=== PATIENT | male | born 1945 | race Caucasian/White ===

== ENCOUNTER 2021-02-12 09:39 | Outpatient (CLI) | payer MEDICARE, SELFPAY ==
--- NOTE | 2021-02-12 10:13 | FL_ITS ---
WS: [id number] UPPER GI WITH AIR TECHNICAL: Double contrast upper GI FLUOROSCOPY TIME: 5.4 minutes CLINICAL INFORMATION: DYSPHAGIA COMPARISON: 2006 Barium swallow FINDINGS: Swallowing: No evidence of aspiration or penetration. Normal swallowing mechanism. Esophagus: Diffuse patulous dilatation of the thoracic esophagus with significant delayed emptying on the upright and supine views. Overall decreased and irregular esophageal contractility with tapered narrowing at the GE junction with intermittent emptying likely due to achalasia/pseudoachalasia. Sta nding column of contrast in the upright and supine imaging. Mucous appears intact in the area of stri cture at the GE junction with a tram track appearance. Stricture is similar in appearance compared to the barium swallow 2006 although esophageal dilatation has significantly progressed. Gastroesophageal reflux: No significant reflux. Stomach: Normal double contrast stomach. Duodenum: Normal duodenal C-loop. Other findings: Moderate spondylitic changes lumbar spine with lumbar curve. FL/FL upper GI w air* [id number] IMPRESSION: 1. Diffuse patulous dilatation of the thoracic esophagus with significant noris yed emptying with stricture at the GE junction. Recommend further evaluation wi endoscopy. 2. Overall decreased and irregular contractility of the thoracic esophagus wit h standing column of contrast compatible with achalasia/pseudoachalasia. 3. No significant reflux visualized. No significant hiatal hernia. 4. Normal double contrast stomach and duodenal C-loop.
== END 2021-02-12 09:40 | disposition home or self-care (01) ==
PROVIDERS: PCP Family Medicine; Visit Provider Family Medicine
DX: R13.10 Dysphagia, unspecified (principal); N39.0 Urinary tract infection, site not specified
CPT/HCPCS: 74246

== ENCOUNTER → 2022-07-08 14:46 | Outpatient (BNVA) | payer MEDICARE, SELFPAY | PROVIDERS: PCP Family Medicine; Visit Provider Clinical Nurse Specialist Adult Health | DX: Z79.01 Long term (current) use of anticoagulants (principal); L03.119 Cellulitis of unspecified part of limb; I82.409 Acute embolism and thrombosis of unspecified deep veins of unspecified lower extremity | CPT/HCPCS: 85610 ==

== ENCOUNTER → 2023-06-24 09:42 | Outpatient (BNVA) | payer MEDICARE, SELFPAY | PROVIDERS: PCP Family Medicine; Visit Provider Family Medicine | DX: N20.0 Calculus of kidney (principal) | CPT/HCPCS: 81000; 87077; 87086; 87184 ==

== ENCOUNTER → 2023-08-06 09:26 | Outpatient (BNVA) | payer MEDICARE, SELFPAY | PROVIDERS: PCP Family Medicine; Referring Provider Family Medicine; Visit Provider Student in an Organized Health Care Education/Training Program | DX: M19.012 Primary osteoarthritis, left shoulder (principal); G56.00 Carpal tunnel syndrome, unspecified upper limb; G56.20 Lesion of ulnar nerve, unspecified upper limb; M75.102 Unspecified rotator cuff tear or rupture of left shoulder, not specified as traumatic; Z79.899 Other long term (current) drug therapy | CPT/HCPCS: 73030; 99204 ==

== ENCOUNTER → 2023-08-19 08:54 | Outpatient (BNVA) | payer MEDICARE, SELFPAY | PROVIDERS: PCP Family Medicine; Visit Provider Clinical Nurse Specialist Adult Health | DX: R30.0 Dysuria (principal); N39.0 Urinary tract infection, site not specified | CPT/HCPCS: 81000; 87077; 87086; 87184 ==

== ENCOUNTER 2023-09-03 06:42 | Outpatient (CLI) | payer MEDICARE, SELFPAY ==
--- NOTE | 2023-09-03 07:15 | MR_ITS ---
WS: [id number] MRI LEFT SHOULDER HISTORY: left shoulder pain, rule out rotator cuff tear COMPARISON: Shoulder radiograph 08/06/2023 TECHNIQUE: Multiplanar sequences of the shoulder joint are submitted. Mild compromise of image quality due to motion artifact. Severe degenerative changes at the AC joint. Loss of the normal AC joint with adjacent osteophytes an d subchondral cystic disease. There is significant impingement upon the rotator cuff medial to the hu meral head by AC joint arthritis. Subacromial impingement secondary to high riding humeral head. No o s acromion. Biceps tendon is not identified in the bicipital groove. Just proximal to the bicipital g roove is an abnormal biceps tendon. Biceps tendon is thickened with intermediate signal. Markedly high riding humeral head. There is abutment on the undersurface of the acromion. Complete lo ss of cartilage around the humeral head and glenoid. Subchondral cysts within the glenoid. Severe atrophy of the supraspinatus muscle. The supraspinatus tendon is torn and retracted medial to the humeral head. The distal supraspinatus tendon is frayed. Subscapularis tendon is not identified w ithin its entirety. Suspect the subscapularis tendon is also torn distally with retraction. Mild subs capularis muscle atrophy. Mild infraspinatus muscle atrophy. The tendon is difficult to identify dist ally. I suspect there may be some calcific deposits within the distal infraspinatus tendon. The teres minor muscle is dominant. Surface fraying of the labrum. The superior labrum appears torn. Tear continues through the anterior labrum. MR/MR shoulder LT wo con* [id number] IMPRESSION: 1. Advanced degenerative changes throughout the LEFT shoulder. 2. Severe AC joint arthropathy with osteophyte encroachment upon the rotator c uff. 3. Complete tear with retraction supraspinatus tendon with muscle atrophy. 4. Subscapularis tendon and infraspinatus tendons are very poorly visualized d istally and I suspect these are both torn with muscle atrophy. 5. Biceps tendon not identified in the bicipital groove. Most consistent with dislocation. Just proximal to the bicipital groove the biceps tendon is thicken ed and heterogeneous from tendinopathy. 6. High riding humeral head abutting the undersurface of the acromion. Advance d degenerative changes at the glenohumeral joint. 7. Tears involving the superior and anterior labrum.
== END 2023-09-03 06:43 | disposition home or self-care (01) ==
LOC: RAD 06:42
PROVIDERS: PCP Family Medicine; Visit Provider Student in an Organized Health Care Education/Training Program
DX: M19.012 Primary osteoarthritis, left shoulder (principal); M75.122 Complete rotator cuff tear or rupture of left shoulder, not specified as traumatic
CPT/HCPCS: 73221

== ENCOUNTER → 2023-11-10 07:38 | Outpatient (BNVA) | payer MEDICARE, SELFPAY | PROVIDERS: PCP Family Medicine; Visit Provider Student in an Organized Health Care Education/Training Program | DX: G56.02 Carpal tunnel syndrome, left upper limb (principal); G56.22 Lesion of ulnar nerve, left upper limb | CPT/HCPCS: 99214 ==

== ENCOUNTER → 2023-11-23 15:28 | Outpatient (BNVA) | payer MEDICARE, SELFPAY | PROVIDERS: PCP Family Medicine; Visit Provider Family Medicine | DX: I82.409 Acute embolism and thrombosis of unspecified deep veins of unspecified lower extremity (principal); Z79.01 Long term (current) use of anticoagulants; K92.1 Melena | CPT/HCPCS: 85025; 85610 ==

== ENCOUNTER 2023-12-30 06:31 | Day surgery (SDC) | payer MEDICARE, SELFPAY ==
[2023-12-30] VITALS (9 sets, daily range): BP systolic 109–183; BP diastolic 64–92; PULSE 74–81; RESP 16–18; TEMP 36.1–36.5; O2SAT 91–98; BMI 33.5
[2023-12-30] MEDS: sodium chloride 0.9% 1,000 ML 30 ML IV (07:10)
[2023-12-30] MEDS: ketorolac 30 mg/mL INJ IVP (07:11)
[2023-12-30] MEDS: scopolamine 1.5 Patch 1 PATCH TRANSDERMA (07:11)
[2023-12-30] MEDS: acetaminophen 1,000 MG/100 ML PIGGYBACK 400 MG IV (07:11)
--- NOTE | 2023-12-30 07:14 | P.HP_ITS ---
Same Day Surgery H&P Indication for Procedure/HPI DATE OF PROCEDURE: December 30, 2023 CHIEF COMPLAINT/INDICATIONFOR SURGICAL PROCEDURE: Left carpal tunnel syndrome, left cubital tunnel syndrome PREOP DIAGNOSIS: Left carpal tunnel syndrome, left cubital tunnel syndrome PLANNED PROCEDURE: Operation Date: 12/30/23 09:10 Proposed Procedures p Carpal Tunnel Release(Left) - Moshe Berrios DO s Cubital Tunnel Release(Left) - Moshe Berrios DO s Ulnar Nerve Transposition(Left) - Moshe Berrios DO Medications/Allergies* Home Medications Medication Instructions Recorded Confirmed Type glyburide 5 mg tablet 5 mg PO BID 12/29/23 12/29/23 History lisinopril 20 mg tablet 20 mg PO DAILY 12/29/23 12/29/23 History lovastatin 10 mg tablet 10 mg PO DAILY 12/29/23 12/29/23 History warfarin 5 mg tablet 5 mg PO DAILY 12/29/23 12/29/23 History Allergies/Adverse Reactions Allergy/AdvReac Type Severity Reaction Status Date / Time No Known Allergies Allergy Verified 12/29/23 13:58 Current Medications: Generic Name Dose Route Start Last Admin Trade Name Freq PRN Reason Stop Dose Admin Sodium Chloride 1,000 mls @ 30 mls/hr 12/30/23 06:45 12/30/23 07:10 Sodium Chloride 0.9% IV 12/31/23 06:44 30 mls/hr .Q24H ASTRID Administration Pertinent History/Comorbid Conditions* Medical History (Updated 11/23/23 @ 22:13 by Moshe Berrios DO) Axonal sensorimotor neuropathy Primary osteoarthritis, left shoulder Warfarin anticoagulation DVT (deep venous thrombosis) previous history and is on warfarin Type 2 diabetes mellitus without complications Essential hypertension Social History Smoking and tobacco/nicotine status: unknown if used tobacco/nicotine Marital status: Pertinent Exam Findings alert, oriented x 3, operative site marked and procedure specific exam findings Orthopedic examination today does reveal thenar weakness and atrophy as well as some atrophy of the intrinsic musculature as well particularly noticed at the first webspace today. Please refer to detailed orthopedic examination on 11/09/2023: Left upper extremity normal C-spine ROM No pain. Negative Spurlings Negative Tinel's@ shoulder. Normal ROM Normal ROM elbow. Positive Tinel's@ elbow Right and Left. Thenar weakness bilaterally and mostly on the left more than on the right Subtle atrophy noted. No Intrinsic atrophy noted bilaterally. Left shoulder examination of the cervical spine reveals no pain with range of motion. A negative Spurlings test is noted. There is some tenderness over the trapezius muscle on the left. Exam of both upper extremities shows no pain on range of motion of the elbows wrists or hands. Left shoulder active to roughly only 40- 45 degrees passively roughly 160 there is no atrophy noted about the right shoulder. The left shoulder shows marked pain on range of motion, primarily abduction as well as forward flexion. There is pain on abduction against resistance, pain over the leading edge of the acromion. There is some pain near the AC joint on the left compared to the right. Positive drop arm test , there is full internal and external rotation with 5/5 strength noted with the elbows at the side. There is pain with Jobes test and weakness noted. There is dramatic weakness with a positive two finger drop arm test. A positive Marin impingement test is noted positive crossover arm test Patient does have positive Tinel's over the cubital tunnel and carpal tunnel as well as positive median nerve compression test on the left wrist.. Positive Phalen's left wrist Recommendations Surgery/Procedure today Other Plans: Patient is here today we reviewed once again his nerve conduction study results as well as our exam findings and at this point in time through shared decision making patient elects to proceed with left carpal tunnel release and left cubital tunnel release with possible nerve transposition. Patient understands the ins and outs of procedure the risk benefits complication alternatives surgery and through shared decision-making elects proceed with surgical intervention. All questions have been answered this time. Coding Level of Care Code Acute Code for g Fwd
[2023-12-30 07:16] LABS: Glucose Point of Care 275 mg/dL (70-110)
[2023-12-30 07:36] LABS: INR 1.12 (0.8-1.2)
--- NOTE | 2023-12-30 07:38 | P.ANESASSM_ITS ---
Pre-Anesthetic Assessment Height/Weight: Height 1.78 m Weight 106.141 kg Temp Pulse Resp BP Pulse Ox O2 Del Method 97.7 F 74 18 183/92 95 Room Air 12/30/23 06:51 12/30/23 06:51 12/30/23 06:51 12/30/23 06:51 12/30/23 06:51 12/30/23 07:07 Preop Diagnosis: Left carpal tunnel syndrome, left cubital tunnel syndrome Operation Date: 12/30/23 09:10 Proposed Procedures p Carpal Tunnel Release(Left) - Moshe Agustina, DO s Cubital Tunnel Release(Left) - Moshe Anoka, DO s Ulnar Nerve Transposition(Left) - Moshe Agustina, DO Familial anesthetic complications: None Was Beta Karan taken within 24 hours: N/A Was Clonidine taken within 24 hours: N/A Last intake: Intake Last Liquid Date 12/29/23 Last Liquid Time 17:00 Last Solid Date 12/29/23 Last Solid Time 17:00 Social No alcohol and No tobacco Exam alert, oriented x 3, clear to auscultation bilaterally and regular rate & rhythm Airway Mallampati: Class II Dentition: full CV/HEM Deep Vein Thrombosis and Hypertension Metabolic Diabetes Mellitus Anesthetic Plan ASA status: 3 Anesthesia: General and Regional (specify below) Risk of > 500 ml blood loss (7ml/kg in children): No Medications/Allergies Home Medications Medication Instructions Recorded Confirmed Last Taken Type insulin human U-100 NPH-regulr 40 unit (0.4 mL) SUBCUT BID #10 mL 07/14/22 12/29/23 12/29/23 Rx 70-30 mix 100 unit/mL subcutaneous susp (Novolin 70/30 U-100 Insulin) warfarin 2 mg tablet 2 mg PO .as directed #90 tabs 02/06/23 12/29/23 12/25/23 Rx insulin syringe-needle U-100 1 mL #100 ea 06/22/23 11/23/23 Unknown Rx 31 gauge x 08/19 famotidine 20 mg tablet (Pepcid) 20 mg PO BID #60 tabs 12/29/23 12/30/23 Unknown Rx glyburide 5 mg tablet 5 mg PO BID 12/29/23 12/29/23 12/29/23 History lisinopril 20 mg tablet 20 mg PO DAILY 12/29/23 12/29/2312/28/24 History lovastatin 10 mg tablet 10 mg PO DAILY 12/29/23 12/29/23 12/29/23 History warfarin 5 mg tablet 5 mg PO DAILY 12/29/23 12/29/23 12/25/23 History Allergies Allergy/AdvReac Type Severity Reaction Status Date / Time No Known Allergies Allergy Verified 12/29/23 13:58 Current Medications Generic Name Dose Route Start Last Admin Trade Name Freq PRN Reason Stop Dose Admin Sodium Chloride 1,000 mls @ 30 mls/hr 12/30/23 06:45 12/30/23 07:10 Sodium Chloride 0.9% IV 12/31/23 06:44 30 mls/hr .Q24H ASTRID Administration PFSH Anesthesia Medical History Axonal sensorimotor neuropathy Primary osteoarthritis, left shoulder Warfarin anticoagulation DVT (deep venous thrombosis) previous history and is on warfarin Type 2 diabetes mellitus without complications Essential hypertension Social History Smoking and tobacco/nicotine status: unknown if used tobacco/nicotine Marital status: Data Anesthesia 12/30/23 07:06 Coags 12/30/23 07:06 PT 14.80 INR 1.12 Cardiac Studies: 2 No Data to Display
--- NOTE | 2023-12-30 07:39 | ANES.PROC ---
Anesthesia Procedures Procedure/Date: 12/30/23 Nerve Block ^: Nerve Block 1: Main Anesthesia: general anesthesia Time Out Performed: Yes Consent: requested by attending/covering physician, from patient, from other, risks and benefits reviewed and patient agrees to proceed Nerve block location: supraclavicular (L) Anesthesia monitors applied: pulse oximetry, EKG, BP cuff and oxygen Nerve block position: semi sitting Anesthetic Used: ropivicaine 0.5% (25 ml) and with decadron (4 mg) Ultrasound used to: recognize landmarks, visualize and ID brachial plexus and in supraclavicular region Nerve Stimulator Used?: No Interscalene/Femoral BLK: 4 stimuplex 21 g needle used for position and inplane approach, visualize local anesthetic spread and no vascular puncture identified Patient Tolerated Procedure: well and no complications Complications: none
--- NOTE | 2023-12-30 07:40 | SUR.PREOP ---
supraclavicular block don at bedside. timeout completed at 0735. 25ml of lidocaine used. patient vitals monitored. patient tolerated well.
[2023-12-30 07:43] LABS: Blood Urea Nitrogen 24 mg/dL (8-23); Calcium 8.6 mg/dL (8.5-10.5); Carbon Dioxide 19 mmol/L (22-29); Chloride 100 mmol/L (98-107); Creatinine Clr Calc Pharmacy 53.0545; Glucose 291 mg/dL (65-115); Osmolality Calculated 289 mOsm/kg (285-295); Sodium 132 mmol/L (136-145)
[2023-12-30 07:48] LABS: Anion Gap 17.7 (5-19); Potassium 4.7 mmol/L (3.5-5.1)
[2023-12-30] MEDS: ceFAZolin 2,000 MG in sodium chloride 0.9% (plus) 50 ML 100 MG IV (08:55)
[2023-12-30] MEDS: ROPivacaine 0.5% SDV 30 mL 150 MG INJECTION (09:56)
[2023-12-30] MEDS: lidocaine-epi 1% PF 1:200,000 30 mL SDV INJECTION (09:56)
--- NOTE | 2023-12-30 10:05 | W.PM.BPON ---
Date of Procedure: 12/30/2023 Surgeon: Moshe Berrios DO Water/Wastewater Project Engineer(s): Ander Berrios PA-C Procedure(s) performed: Left carpal tunnel release left cubital tunnel release Findings of the procedure(s): Patient was found to have left carpal tunnel syndrome, left cubital tunnel syndrome underwent procedure as planned without issues no complications. Patient did not have a subluxating ulnar nerve as a result no transposition was performed and we just did a left cubital tunnel release nerve in situ. Estimated blood loss: 5 mL Specimen(s) removed: None Post-operative diagnosis: Left carpal tunnel syndrome, left cubital tunnel syndrome
--- NOTE | 2023-12-30 10:07 | P.OP_ITS ---
Operative Report Date of procedure: December 30, 2023 Surgeon: Moshe Berrios DO Child Care Education Coordinator: Ander Berrios PA-C: PA was necessary for assistance in this case with hand positioning to execute the procedure, retraction and protection of neurovascular structures as well as to assist with wound closure and dressing application. Procedure: Preoperative diagnosis: Left carpal tunnel syndrome, left cubital tunnel syndrome Postop Diagnosis: Same Procedure done: Left carpal tunnel release Left?cubital tunnel tunnel release (ulnar nerve decompression at elbow) Surgeon: Moshe Berrios DO Estimated blood loss: 5 mL Tourniquet? 23 minutes IV fluids: 400 mL Complications: None Findings: See operative report narrative Condition: stable Disposition: same day Brief History: Patient's been seen and worked up in the outpatient setting and findings consistent with preoperative diagnosis.? Patient has Left carpal tunnel syndrome as well as Left?cubital tunnel syndrome which has been worked up in the outpatient setting has physical exam findings consistent with this as well as confirmatory nerve conduction/EMG nerve conduction study consistent with diagnosis.? Patient's failed conservative treatment.? As result through shared decision making agreed to proceed with? Left carpal tunnel and Left?cubital tunnel release, possible nerve transposition we talked about treatment options as far as nonoperative and operative intervention.? Understands risk benefits complication alternatives surgical nonsurgical treatment options.? Understanding his risks he agrees to proceed with surgical intervention. Consent was obtained. All questions answered. Procedure: Patient seen evaluate in the preoperative holding area.? Consent was reviewed and signed with patient.? Correct extremity marked.? Patient seen evaluated by anesthesia department, given regional anesthesia, once cleared for surgery was then taken back to the operative suite placed in supine position all bony prominences well-padded patient properly secured to bed.? Left upper extremity placed onto armboard.? Nonsterile tourniquet applied Left upper arm.? Patient then underwent anesthesia per the anesthesia department.? Patient's Left upper extremity was then prepped and draped in standard orthopedic fashion.? Final timeout performed.? Patient received appropriate preoperative antibiotics. Esmarch was used exsanguinate the Left upper extremity.? Tourniquet was insufflated to 250 mmHg. I started with the carpal tunnel release first.? I made a standard open carpal tunnel release starting with the distal most extent in the palm at the Deng's cardinal line and the incision line was made in line with the fourth ray and ended just distal to the wrist crease.? Sharp scalpel incision was made through skin and subcutaneous tissue I then utilizing self retainer then began to dissect with dissection scissors split longitudinally the palmar fascia.? Next I then utilizing my assistant manager/embalmer Gamaliel retractors subsequently utilizing scalpel feathered through the palmaris brevis as well as through the transverse carpal ligament distally.? Once I encountered the floor of the transverse carpal ligament and entered into the carpal tunnel I then switched to dissection scissors.? Carefully released the distal extent of the transverse carpal ligament to the palmar fat.? Care was to protect the recurrent branch and not injured this during this part of the case.? Next I then placed a Almira underneath the transverse carpal ligament proximally to protect the nerve in the carpal tunnel contents.? And then I subsequently under loupe magnification utilize my dissection scissors to release the transverse carpal ligament into the antebrachial fascia under direct visualization with care to keep my scissors with a curved ulnarly away from the palmar cutaneous branch.? The transverse carpal was then completely decompressed proximally and a Almira was then placed both distally and proximally throughout the carpal tunnel and had complete decompression of the nerve.? The nerve did appear to have hourglass shape as it went through the carpal tunnel.? With significant irritation noted around the nerve.? No masses were noted within the contents of the carpal tunnel.? This completed the carpal tunnel release and then I subsequently irrigated the wound bed and placed a wet Ray-Clarita into the incision for later closure. Next marked out the landmarks of the Left elbow of the medial epicondyle and olecranon and made a curvilinear incision following the course of the ulnar nerve at the medial aspect of the elbow.? Sharp scalpel incision was made through skin and subcutaneous tissue.? Next I switched to Littler dissection scissors and spread in plane of the medial antebrachial cutaneous nerve branching which was protected throughout this part of the dissection.? Then I directly came down over the fascia and identified the 2 heads of the FCU fascia and split this Left in the middle and subsequently identified my ulnar nerve distally.? This was then completely released distally under direct visualization and loupe magnification.? Once the nerve was then identified I then subsequently tracked this proximally and released this through Ramachandran's ligament as well as complete decompression of the nerve proximally all the way past the intermuscular septum.? Patient was found to have significant tethering and indentation on the nerve at Ramachandran's ligament consistent with significant ulnar nerve entrapment at the elbow. The nerve was completely released and decompressed both proximally and distally.? Ulnar nerve neurolysis performed and completed both proximally and distally with dissection scissors.? I then took the elbow through range of motion and there was no instability or subluxating of the ulnar nerve.? This completed?cubital tunnel release.? ?Next the wound bed was thoroughly irrigated.? Tourniquet was deflated.? Hemostasis was satisfactory at the?cubital tunnel release surgery site. I then inspected the carpal tunnel incision and this was found to have satisfactory hemostasis and all this was maintained through bipolar electrocautery.? At this point time I sequentially closed?cubital tunnel site with 3-0 Vicryl suture in a running horizontal mattress nylon stitch.? ? The carpal tunnel release surgery was then closed in standard interrupted mattress fashion.? Dressing was Xeroform 4 x 4's ABD Curlex soft roll and an Vincent wrap has a bulky soft dressing with a sling. Patient was then awakened from anesthesia and taken to PACU in stable condition. Disposition: Patient taken to PACU in stable condition recovering well.? Patient will receive appropriate discharge instructions as well as pain medication postoperatively.? We will follow-up with me in the office in 2 weeks.? Patient understands agrees with current plan.? All questions answered.? He understands if any questions or concerns and contact the office for follow-up appointment..
--- NOTE | 2023-12-30 10:35 | PM.PACU ---
PACU note Narrative: Patient is 78-year-old male who just underwent left carpal tunnel release and left cubital tunnel release. Patient transferred to PACU in stable condition. Pain is well controlled. Dressing on hand is dry and in place. Patient's fingers are warm and well-perfused. Patient can wiggle fingers. normal cap refill under 2 seconds. Unable to further testing of motor and motion in arm due to sling and dressing. Unable to assess sensation due to residual localized anesthetic. Exam: awake Disposition: discharged
--- NOTE | 2023-12-30 11:20 | ANE.PACU2 ---
Inpatient post-anesthesia follow up: Airway intact: Yes Vital signs: Temperature 97.5 F Pulse Rate 80 Respiratory Rate 18 Blood Pressure 128/74 Pulse Oximetry 92 Oxygen Delivery Me thod Room Air Oxygen Flow Rate 6 Fraction of Inspir ed Oxygen Hydration adequate: Yes Nausea and vomiting: No Pain level: 1 Mental status: Baseline
== END 2023-12-30 11:20 | disposition home or self-care (01) ==
PROVIDERS: Anesthesiology; PCP Family Medicine; Visit Provider Student in an Organized Health Care Education/Training Program
PROC: (CPT 64721; principal; 2023-12-30 09:00)
PROC: (CPT 64718; 2023-12-30 09:00)
PROC: (CPT 64718; 2023-12-30 09:00)
DX: G56.02 Carpal tunnel syndrome, left upper limb (principal); G56.22 Lesion of ulnar nerve, left upper limb; Z86.718 Personal history of other venous thrombosis and embolism; I10 Essential (primary) hypertension; E11.9 Type 2 diabetes mellitus without complications; Z79.4 Long term (current) use of insulin; Z79.01 Long term (current) use of anticoagulants
CPT/HCPCS: 64718; 64721; 36416; 80048; 82962; 85610; J0131; J0690; J1100; J1885; J2405; J2704; J2795; J3010; J7030

== ENCOUNTER → 2024-01-14 13:41 | Outpatient (BNVA) | payer MEDICARE, SELFPAY | PROVIDERS: PCP Family Medicine; Visit Provider Physician Assistant | DX: Z98.890 Other specified postprocedural states (principal) | CPT/HCPCS: 99024 ==

== ENCOUNTER → 2024-12-22 09:55 | Outpatient (BNVA) | payer MEDICARE, SELFPAY | PROVIDERS: PCP Family Medicine; Visit Provider Family Medicine | DX: I10 Essential (primary) hypertension (principal); E11.9 Type 2 diabetes mellitus without complications; R07.9 Chest pain, unspecified; K92.1 Melena | CPT/HCPCS: 80053; 80061; 83036; 85025; 85610 ==

== ENCOUNTER 2024-12-29 06:47 | Outpatient (CLI) | payer MEDICARE, SELFPAY ==
[2024-12-29 07:11] VITALS: BMI 33.8
--- NOTE | 2024-12-29 07:15 | ECG_ITS ---
Subimage Test Date: 2024-12-29 Pat Name: Mehran Perez Department: Room: Gender: Male Polisher Dial: : 1945 Requested By: Matheus Pleitez Order Number: [id number] Arenas MD: Edi Londono M.D. Interpretive Statements Procedure: A total of 0.4 mg of Lexiscan was infused over 20 seconds. The stress phase was continued for a total of 5 minutes. Sestamibi was injected 20 seconds after the Lexiscan infusion. Vital signs and ECG findings: Baseline blood pressure 193/120 with a heart rate of 84. Blood pressure in recovery was 175/86 with a heart rate of 90 bpm. Baseline EKG showed normal sinus rhythm with frequent premature atrial contractions and right bundle branch block. There were no ST-T wave changes compared to baseline with the stress test. Conclusion: 1. Normal EKG response to Lexiscan infusion 2. No Lexiscan induced chest pain. 3. Normal blood pressure and heart rate response. Frequent premature atrial contractions at rest which improved during the stress test. 4. Nuclear myocardial perfusion scan pending; see separate report. Electronically Signed On 12-29-2024 20:08:16 CDT by Edi Londono M.D. [email or web address]
--- NOTE | 2024-12-29 07:16 | NMCV_ITS ---
NM justino perf SPECT r/s* [id number] Mehran Perez Age: 79 Gender: M : 1945 Exam Date: 12/29/2024 07:50 Ordering Phys: Matheus Telles MD Technologist: CRISTINA Santos Exam Location: [facility] [address] Indications: CP STRESS TEST Please see separate stress test report in [facility] for full findings IMAGE PROTOCOL Rest/Stress 1 Lexiscan Day Radiopharmaceutical Dose (mCi) Administration Site Administered by Rest: Tc-99m 10.6 IV Ibeth Rosa, FARM HELPER Sestamibi Stress:Tc-99m 32.9 IV Ibeth Vuonggle, FARM HELPER Sestamibi Rest: 29-Dec-2024 60 Discovery 630 Stress: 29-Dec-2024 30 Discovery 630 0.4mg Lexiscan. Supine position only as patient was unable to lay prone because of past back surgery. SPECT RESULTS Technical Quality: Good Raw Data Analysis: Normal Image Corrections: No attenuation or motion correction applied Summed Stress Score: 2 Summed Rest Score: 1 Summed Difference Score: 1 PERFUSION FINDINGS There is a small to medium sized area of moderately reduced tracer counts in the anterior wall that partially improves on the resting images. There is a small area of mildly reduced tracer counts in the mid inferior wall that improves on the resting images. FUNCTIONAL RESULTS (calculated via Gated SPECT) Stress Image LV EF (%): 75 Stress EDV (mL):96 TID: 1.12 Stress ESV (mL):24 FUNCTIONAL FINDINGS: There is normal left ventricular systolic function. EF 75%. IMPRESSIONS 1. Small area of infarction in the apical anterior wall segment with a small area of adjacent moderate ischemia. 2. Small area of mild ischemia in the mid inferior wall segment. 3. Normal global LV systolic function, EF 75%. Edi Londono MD, FACC (Electronically Signed) Final Date: 29 December 2024 19:30 S
[2024-12-29 09:02] VITALS: BP 175/86; PULSE 92
--- NOTE | 2024-12-29 09:31 | PC.NURSE ---
when hooking pt up to the stress test, it was noted pt had an elevated bp. nurse took pressure again, still high. nurse called ordering physician and had modified ruba stress test changed to lexiscan.
== END 2024-12-29 06:48 | disposition home or self-care (01) ==
PROVIDERS: PCP Family Medicine; Visit Provider Family Medicine
DX: R07.9 Chest pain, unspecified (principal); I10 Essential (primary) hypertension
CPT/HCPCS: 36415; 78452; 93017; 96374; A9500; J2785

== ENCOUNTER → 2025-02-01 13:16 | Outpatient (BNVA) | payer MEDICARE, SELFPAY | PROVIDERS: PCP Family Medicine; Visit Provider Internal Medicine Cardiovascular Disease | DX: R06.09 Other forms of dyspnea (principal); R94.39 Abnormal result of other cardiovascular function study; E11.9 Type 2 diabetes mellitus without complications; I10 Essential (primary) hypertension; R60.0 Localized edema; Z86.718 Personal history of other venous thrombosis and embolism; Z79.01 Long term (current) use of anticoagulants; Z79.4 Long term (current) use of insulin | CPT/HCPCS: 99204 ==

== ENCOUNTER 2025-02-06 11:54 | Outpatient (CLI) | payer MEDICARE, SELFPAY ==
[2025-02-06 13:08] LABS: Hematocrit 34.0 % (37-53); Hemoglobin 10.60 g/dL (11.27-16.99); Mean Corpuscular HGB Conc 31.2 g/dL (30-55); Mean Corpuscular Hemoglobin 26.8 pg (27-33); Mean Corpuscular Volume 85.9 fl (82-101); Nucleated Red Blood Cells % 0 %; Platelet Count 184 10^3/cmm (157-399); Red Blood Count 3.96 10^6/uL (3.85-5.65); White Blood Count 6.32 10^3/uL (3.29-11.43)
[2025-02-06 13:25] LABS: INR 1.02 (0.83-1.21)
[2025-02-06 13:35] LABS: Anion Gap 15.1 (5-19); Blood Urea Nitrogen 31 mg/dL (8-23); Calcium 8.9 mg/dL (8.5-10.5); Carbon Dioxide 20 mmol/L (22-29); Chloride 106 mmol/L (98-107); Glucose 173 mg/dL (65-115); NT Pro B Type Natriuretic Pept 220 pg/mL (0-450); Osmolality Calculated 295 mOsm/kg (285-295); Potassium 4.1 mmol/L (3.5-5.1); Sodium 137 mmol/L (136-145)
== END 2025-02-06 11:55 | disposition home or self-care (01) ==
LOC: LAB 11:55
PROVIDERS: PCP Family Medicine; Visit Provider Internal Medicine Cardiovascular Disease
DX: R94.39 Abnormal result of other cardiovascular function study (principal); R07.9 Chest pain, unspecified; R58 Hemorrhage, not elsewhere classified; R06.02 Shortness of breath
CPT/HCPCS: 36415; 80048; 83880; 85025; 85610

== ENCOUNTER 2025-02-21 08:18 | Outpatient (CLI) | payer MEDICARE, SELFPAY ==
--- NOTE | 2025-02-21 08:30 | USCV_ITS ---
Mehran Perez Age: 79 Gender: M : 1945 Exam Date: 02/21/2025 09:00 Ordering Phys: Edi Londono MD ([email or web address]) Technologist: Exam Location: [facility] – [place] Indication: cp sob BP: 140 / 80 HR: 80 Rhythm: Sinus Technical Quality: Adequate MEASUREMENTS (Male / Female) Normal Values 2D ECHO LV Diastolic Diameter PLAX 3.6 cm 4.2 - 5.9 / 3.9 - 5.3 cm IVS Systolic Thickness 2.5 cm LVPW Systolic Thickness 2.7 cm LVOT Diameter 2.0 cm LV Ejection Fraction 2D Teich 65.1 % LV Ejection Fraction MOD 4C 58.1 % LV Ejection Fraction MOD 2C 68.8 % LV Ejection Fraction 2C AL 69.1 % LA Diameter 4.0 cm RA Systolic Volume 4C AL 57.1 ml RA Systolic Volume 4C MOD 50.2 ml Aorta at Sinotubular Diameter 3.9 cm IVC Diameter 1.3 cm M-MODE LA Ao Ratio MM 1.5 AV Cusp Separation MM 2.6 cm DOPPLER AV Peak Velocity 126.3 cm/s LVOT Peak Velocity 90.0 cm/s AV Area Cont Eq vti 2.5 cm squared AV Area Cont Eq pk 2.4 cm squared MV Peak Velocity 130.0 cm/s MV Area PHT 5.0 cm squared Mitral E to A Ratio 0.8 TR Peak Velocity 111.0 cm/s TR Peak Gradient 4.9 mmHg TV Peak E Velocity 85.0 cm/s PV Peak Velocity 101.0 cm/s FINDINGS Left Ventricle Normal left ventricular cavity size. Normal global left ventricular systolic function. Left ventricular wall thickness and segmental wall motion not well visualized. Left ventricular ejection fraction is 58%. Normal left ventricular diastolic function. Right Ventricle Normal right ventricular size and systolic function. RVSP could not be calculated due to incomplete tricuspid regurgitation velocity profile. Right Atrium Normal right atrial size. Left Atrium Normal left atrial size. IA Septum Normal appearance of the interatrial septum. Mitral Valve Normal mitral valve structure. Trace mitral valve regurgitation. Aortic Valve Normal aortic valve structure. No aortic valve stenosis or regurgitation. Tricuspid Valve Normal tricuspid valve structure. No tricuspid valve stenosis or regurgitation. Normal pulmonary pressure. Pulmonic Valve Normal pulmonic valve structure. No pulmonic valve stenosis or regurgitation. Pericardium No pericardial effusion. Aorta Normal diameter of the aortic root and ascending thoracic aorta. IVC Normal IVC diameter. CONCLUSIONS Normal left ventricular cavity size. Normal global left ventricular systolic function. Left ventricular wall thickness and segmental wall motion not well visualized. Left ventricular ejection fraction is 58%. Normal left ventricular diastolic function. Normal right ventricular size and systolic function. No significant valvular abnormalities. Edi Londono MD, FACC (Electronically Signed) Final Date: 28 February 2025 20:11 S
== END 2025-02-21 08:19 | disposition home or self-care (01) ==
LOC: RAD 08:21
PROVIDERS: PCP Family Medicine; Visit Provider Internal Medicine Cardiovascular Disease
DX: R06.02 Shortness of breath (principal); I51.89 Other ill-defined heart diseases
CPT/HCPCS: 93306

== ENCOUNTER 2025-02-23 08:46 | Outpatient (CLI) | payer MEDICARE, SELFPAY ==
--- NOTE | 2025-02-23 09:00 | CT_ITS ---
WS: [id number] CT CALCIUM SCORE REASON FOR VISIT: chest pain; Coronary artery disease risk assessment COMPARISON: None TECHNIQUE: Noncontrast coronary CT in combination with quantitative analysis performed on a separate workstation were used to determine CACS (Agatston score) TOTAL EXAM DOSE: 229.92 mGy.cm ECG GATING: Prospective SCAN RANGE: Pulmonary artery bifurcation to Inferior aspect of heart COMPLICATIONS: None FINDINGS: Technical Quality/Examination Quality: Good Limitaiton: None OVERALL SCORES Total calcium score: 7458 Total volume score: 5810 mm3 Percentile: 90-100th percentile for males above the age of 74 ARTERY SCORES Left main coronary artery: 0 Left anterior descending artery: 2542 Left circumflex artery: 480 Right coronary artery: 4386 OTHER FINDINGS: Mediastinum: Normal. Thoracic aorta: Normal. Lungs: Tiny LEFT perifissural nodule. Tiny nodule RIGHT upper lobe. Upper Abdomen: Small esophageal hiatal hernia. Dilated thoracic esophagus with air-fluid level can be seen with achalasia. MINIMAL: 1-10 MILD: 11-100 MODERATE: 101-400 SEVERE:>400 CT/CT heart w calcium score 31650 IMPRESSION: 1. Calcium score between the 90th and 100th percentile for males above the age of 74. 2. Severe calcified coronary artery disease. GRADING OF CORONARY ARTERY DISEASE (BASED ON TOTAL CALCIUM SCORE) NO EVIDENCE OF CAD: 0 calcium score
== END 2025-02-23 08:47 | disposition home or self-care (01) ==
LOC: RAD 08:47
PROVIDERS: PCP Family Medicine; Visit Provider Internal Medicine Cardiovascular Disease
DX: R07.9 Chest pain, unspecified (principal); R94.39 Abnormal result of other cardiovascular function study; I25.10 Atherosclerotic heart disease of native coronary artery without angina pectoris; K44.9 Diaphragmatic hernia without obstruction or gangrene; K22.89 Other specified disease of esophagus
CPT/HCPCS: 75571

== ENCOUNTER 2025-03-08 07:23 | Outpatient (CLI) | payer MEDICARE, SELFPAY ==
[2025-03-08] VITALS (21 sets, daily range): BP systolic 119–230; BP diastolic 60–107; PULSE 68–96; RESP 12–22; TEMP 36.6; O2SAT 93–96; BMI 34.7
--- NOTE | 2025-03-08 07:30 | XACV_ITS ---
Exam Room: 2 Ht: 178 cm Wt: 110 kg BSA: 2.37 m2 Gender: Male : 1945 Any Known Allergies: No known allergies Exam Priority: Routine Procedure(s): Procedure Description: Diagnostic procedure Procedure Description: Left Heart Catheterization Procedure Description: Coronary Angiography Diagnostic Cath Status: Elective Diagnostic Findings * Left Main has no disease. * Mid Left Anterior Descending: significant 80% stenosis, FLOR: 3 flow. * Distal Left Anterior Descending: significant 80% stenosis, FLOR: 3 flow. * Mid Right Coronary Artery: mild 40% stenosis, FLOR: 3 flow. * Proximal Circumflex: severe 90% stenosis, FLOR: 3 flow. * Ramus: obstructive 60% stenosis, FLOR: 3 flow. * 1st Diagonal: obstructive 60% stenosis, FLOR: 3 flow. * Right Posterior AV: severe 90% stenosis, FLOR: 3 flow. * Posterior Descending Right: severe 90% stenosis, FLOR: 3 flow. * BloodVessel1: severe 90% stenosis, FLOR: 3 flow. * Coronary angiography shows right dominance. * 1. Left main: No significant obstructive disease 2. LAD is a moderate size and caliber vessel and proximal to mid segment without significant stenosis, it then bifurcates into 2 parallel system mid LAD and long diagonal branch both vessels are small caliber almost 2 mm or less, distal LAD then tapers off into 1 mm vessel has 90% stenosis not amenable to intervention, diagonal tapers off into 1 mm diffusely disease vessel with tandem 90% stenosis not amenable to intervention. 3-Patient has nondominant left circumflex with groove small caliber circumflex vessel with 90% stenosis not amenable to intervention. 4-High obtuse marginal is small to medium size vessel with proximal 50% stenosis 5-RCA is a large-caliber dominant vessel which does not have a significant stenosis in proximal to distal segment however PDA is also small caliber vessel with tandem 70 to 80% stenosis due to size of vessel is not amenable to intervention, PLB is small caliber diffusely diseased vessel with distal 90% stenosis it is not amenable to intervention.Overall patient has diffusely disease small caliber vessels not amenable to intervention nor are these good target for CABG, medical management maximum is recommended. Conclusions 1. There is severe coronary artery disease with three vessel disease. 2. Indication: Abnormal stress test/angina. Recommendations * 1-Return to inpatient for close monitoring and routine cath care 2-Risk factor modification for secondary prevention 3-Statin and aspirin 81 mg life-long, if tolerated 4-quit smoking 5-Continue optimal medical management 6-Follow up with Dr. Londono as scheduled and your primary care in 10 days. Diagnostic RX Recommendation: medical therapy and/or counseling Pressures Phase:Rest AO : 135 / 37 ( 71 ) @ 9:00:00 AM 114 / 68 ( 92 ) @ 9:04:00 AM 182 / 64 ( 115 ) @ 9:23:00 AM 173 / 67 ( 112 ) @ 9:23:00 AM LV : 179 / -9 / 14 @ 9:22:00 AM 178 / -11 / 12 @ 9:23:00 AM Valves Phase:DefaultPhase AV : 0.0 @ 9:27:42 AM AV Mean Gradient: 0.0 @ 9:27:42 AM Clinical Evaluation EBL: 5mL-10mL Procedural Details Procedure Consent Obtained. Pre-Procedure Time Out. Identified patient by full name and date of as verbalized by the patient/guarantor. Does the consent match the physician's order: Yes. Accurate & Complete Informed Consent: Yes. Inpatient/Outpatient History & Physical on Chart: Yes. If H&P is completed, is and addenduem needed: No; If yes, is the addendum complete: N/A. Visualize and Verify Site with Patient/Guarantor: N/A. Relevant Radiology Images available: Yes. Pre-op teaching completed and patient verbalized understanding. The risks, benefits, and alternatives of sedation and/or procedure were discussed by physician. The patient agrees to continue. Procedure started. [facility] Clinical Fraility Score: 3: Managing Well. Sod Farmer Indications: Suspected CAD. Chest Pain Symptom Assessment: Typical Angina Symptoms. Correct patient, site and procedure confirmed by cath team. Current diagnosis: Chest Pain. PERRLA. Strong, equal hand food service clerk bilaterally. Lungs clear x 5 lobes. IV Site on Arrival: 20 gauge in the right anticubital. IV Fluids: 0.9% NaCl at KVO. 0 mL infused prior to skilled laborer. Pre Procedural Pulses: bilateral dorsalis pedis was 1+. Pre Procedural Pulses: bilateral posterior tibial was 2+. Pre Procedural Pulses: bilateral radial was 3+. Oxygen started at 2liters/min via nasal canula. right groin was prepped with chloroprep then draped in the usual sterile fashion. right radial was prepped with chloroprep then draped in the usual sterile fashion. Physician arrived. Baseline sample Acquired. HR: 95 BPM. Physician scrubbed in. Immediate Pre-Procedure Time Out. Correct Patient: Yes; Correct Procedure: Yes; Correct Site: Yes; Correct Patient Position: Yes; Correct Supplies: Yes; Dried Flammable Prep: Yes; Blood Products Available: N/A;. Lidocaine 1% infiltrated to the right radial. Arterial access obtained. A 5 malagasy Gera catheter in over wire. Multiple views taken of left coronary artery. Catheter redirected to the RCA. Multiple views taken of right coronary artery. Physician review of cine films. Catheter removed over the exchange wire. A 5 malagasy Angled Pig catheter in over wire. EDP Sample taken: LV 179/-10,14; HR: 86 BPM; SpO2: 96%. Pullback taken: LV 178/-12,12; AO 182/64(115); Mean: 0mmHg, Peak to Peak: 0mmHg, SEP: 7sec/min; HR: 86 BPM; SpO2: 96%. Catheter removed over the exchange wire. A TR Band was successful obtaining hemostatsis at the Right Radial artery insertion site. Vital chart was stopped. Post Procedure: Pulses reassessed and unchanged. PERRLA. Strong, equal hand food service clerk bilaterally. No VTE prophylaxis required. Medication's Wasted: Lidocaine 1% = 18 mL. Medication's Wasted: Nitro = 49.8 mcg. Medication's Wasted: Heparin = 1000 units. Medication's Wasted: Other = Fentanyl 50mcg Versed 1 mg. Total IV fluids: 50 mL. Post-op diagnosis: CAD. Complications: None. Estimated blood loss: 5mL-10mL. Responsiveness - Normal response to verbal stimuli; alert and oriented, PERRLA. Airway - Unaffected, no intervention required; spontaneous ventilation. Circulation: W/N/L, pulses unchanged. Nausea/Vomiting: No. Procedure completed. Patient transferred by stretcher to CPRU. Access Site Site: Right Radial artery Sheath Size: 6 Fr Hemostasis Method: TR Band Hemostasis Success: Successful Procedure Medications Start: 8:48 AM Stop: 8:48 AM Medication: Versed Amount: 1 mg Route: I.V. Start: 8:48 AM Stop: 8:48 AM Medication: Fentanyl Amount: 50 mcg Route: I.V. Start: 8:57 AM Stop: 8:57 AM Medication: Nitrogylcerin Amount: 200 mcg Route: I.A. Start: 8:59 AM Stop: 8:59 AM Medication: Heparin Amount: 5000 units Route: I.V. I, the attending physician, have reviewed and verified all procedure medications. Yes, all medications given per verbal order History/Risk Factors Hypertension: Yes Dyslipidemia: No Peripheral Arterial Disease (PAD): No Myocardial Infarction (SD): No Obesity: No Renal Disease: No Tobacco Use: Never Prior Interventions PCI: No CABG: No Valve Surgery: No Report Signatures Finalized by Ksenia Wallis MD on 03/18/2025 04:09 PM
[2025-03-08 07:57] LABS: Hematocrit 40.3 % (37-53); Hemoglobin 12.70 g/dL (11.27-16.99); Mean Corpuscular HGB Conc 31.5 g/dL (30-55); Mean Corpuscular Hemoglobin 26.3 pg (27-33); Mean Corpuscular Volume 83.6 fl (82-101); Nucleated Red Blood Cells % 0 %; Platelet Count 212 10^3/cmm (157-399); Red Blood Count 4.82 10^6/uL (3.85-5.65); White Blood Count 9.74 10^3/uL (3.29-11.43)
--- NOTE | 2025-03-08 07:58 | P.HP_ITS ---
Same Day Surgery H&P Indication for Procedure/HPI DATE OF PROCEDURE: March 08, 2025 CHIEF COMPLAINT/INDICATIONFOR SURGICAL PROCEDURE: Chest pain/shortness of breath/abnormal stress test PREOP DIAGNOSIS: Abnormal stress test/chest pain PLANNED PROCEDURE: Operation Date: 03/08/25 08:30 Proposed Procedures p Cardiac Catheterization - C w/wo LV % coros(Left) - Ksenia Wallis MD 79-year-old male past medical history significant for hypertension hyperlipidemia for worsening of chest pain shortness of breath underwent stress test which turns out to be abnormal it is the reason Dr. Londono suggested left heart catheterization. Today patient is here for that Medications/Allergies* Allergies/Adverse Reactions Allergy/AdvReac Type Severity Reaction Status Date / Time No Known Allergies Allergy Verified 02/01/25 13:22 Current Medications: Generic Name Dose Route Start Last Admin Trade Name Freq PRN Reason Stop Dose Admin Sodium Chloride 1,000 mls @ 50 mls/hr 03/08/25 07:30 03/08/25 07:35 Sodium Chloride 0.9% IV 03/09/25 03:29 Not Given .Q20H ONE Pertinent History/Comorbid Conditions* Medical History (Updated 02/01/25 @ 14:23 by Edi Londono MD) Axonal sensorimotor neuropathy Primary osteoarthritis, left shoulder Warfarin anticoagulation DVT (deep venous thrombosis) previous history and is on warfarin Type 2 diabetes mellitus without complications Essential hypertension Social History Smoking and tobacco/nicotine status: never used tobacco/nicotine Marital status: Pertinent Exam Findings alert, oriented x 3, clear to auscultation bilaterally, regular rate & rhythm, operative site marked and procedure specific exam findings Conscious Sedation Assessment PATIENT ASSESSED PRIOR TO SEDATION, WITH NO CHANGE NOTED: Yes AIRWAY EVAL/ANESTHESIA PLAN: ASA II and Patient agrees to continue as planned ADDITIONAL INFORMATION: All risk-benefit and alternative for the procedure has been explained to the patient. Patient understand 2% risk of stroke major bleed. Patient understand 5% risk of minor bleeding bruising infection hematoma contrast- induced nephropathy urgent emergent vascular or CT surgery. Patient agrees to it and would like to proceed with it. Recommendations Other Other Plans: Proceed with left heart cath/PCI if indicated Coding Level of Care Code Acute Code for Chg Fwd
[2025-03-08] MEDS: hyDRALAzine 20 mg/mL INJ 1 mL 10 MG IVP (08:10)
[2025-03-08 08:20] LABS: Anion Gap 16.2 (5-19); Blood Urea Nitrogen 23 mg/dL (8-23); Calcium 9.2 mg/dL (8.5-10.5); Carbon Dioxide 22 mmol/L (22-29); Chloride 100 mmol/L (98-107); Glucose 223 mg/dL (65-115); Osmolality Calculated 289 mOsm/kg (285-295); Potassium 4.2 mmol/L (3.5-5.1); Sodium 134 mmol/L (136-145)
--- NOTE | 2025-03-08 09:30 | PC.NURSE ---
Received the patient back from the production laborer via bed s/p [facility]. Patient ambulated to the cot without difficulty. A & 0 x 3. quality assurance monitor body placed and vital signs obtained. TR band intact to the right wrist x 2. No bleeding or hematoma noted. Palpable radial pulse. No other assessment changes noted from pre cath assessment. Family at bedside. No concerns voiced at this time.
--- NOTE | 2025-03-08 10:30 | PC.NURSE ---
Letting the air out of the 2nd TR band per protocol. Patient resting with eyes closed at this time. No assessment changes noted.
--- NOTE | 2025-03-08 13:00 | PC.NURSE ---
TR band removal note Remaining air removed from TR band to right wrist at this time. Site is asymptomatic, no bleeding or hematoma observed. Radial pulse palpable. TR band removed and dressed with large band aid.
== END 2025-03-08 14:28 | disposition home or self-care (01) ==
PROVIDERS: PCP Family Medicine; Visit Provider Internal Medicine Cardiovascular Disease
DX: I25.10 Atherosclerotic heart disease of native coronary artery without angina pectoris (principal); I10 Essential (primary) hypertension; E78.5 Hyperlipidemia, unspecified; Z79.01 Long term (current) use of anticoagulants; Z86.718 Personal history of other venous thrombosis and embolism
CPT/HCPCS: 36415; 80048; 85025; 93458; 99152; 99153; C1769; C1887; C1894; J0360; J1644; J2250; J3010; J3490; J7030; J9999; Q0163; Q9967

== ENCOUNTER → 2025-03-14 08:00 | Outpatient (BNVA) | payer MEDICARE, SELFPAY | PROVIDERS: PCP Family Medicine; Visit Provider Family Medicine | DX: I25.10 Atherosclerotic heart disease of native coronary artery without angina pectoris (principal) | CPT/HCPCS: 80048 ==